=== PATIENT | male | born 1995 | race Caucasian/White ===

== ENCOUNTER 2024-05-10 14:43 | Outpatient (REF) | payer MEDICAID, SELFPAY ==
[2024-05-11 19:33] LABS: Herpes Simplex Type 2 IgG <0.90 index
== END 2024-05-10 14:44 | disposition home or self-care (01) ==
LOC: HO.HHCL 14:43
PROVIDERS: Visit Provider Student in an Organized Health Care Education/Training Program
DX: Z13.89 Encounter for screening for other disorder (principal)
CPT/HCPCS: 36415; 86695; 86696